=== PATIENT | male | born 2000 | race American Indian/Alaskan Native ===

== ENCOUNTER 2020-08-05 22:18 | Emergency (ER) | payer BC ==
[2020-08-05 23:20] VITALS: BP 115/75
[2020-08-06] MEDS ORDERED: ACETAMINOPHEN 500 MG TAB PO ONE (00:33)
[2020-08-06] MEDS ORDERED: IBUPROFEN 600 MG TAB PO ONE (00:33)
--- NOTE | 2020-08-06 01:03 | XRay Report ---
Right long finger-3 views INDICATION: Right middle finger pain, laceration. COMPARISON: None. IMPRESSION: No acute osseous abnormality. Superficial laceration over the dorsal aspect of the base of the middle phalanx with no radiopaque foreign body or significant subcutaneous gas. Normal align ment. No significant DJD. Signer Name: Syed Rodríguez MD Signed: 08/06/2020 12:58 AM Workstation Name: [id number]
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
== END 2020-08-06 01:55 | disposition home or self-care (01) ==
LOC: ED 22:18
DX: S61.212A Laceration without foreign body of right middle finger without damage to nail, initial encounter (principal); Z79.1 Long term (current) use of non-steroidal anti-inflammatories (NSAID); Z79.899 Other long term (current) drug therapy; Y04.2XXA Assault by strike against or bumped into by another person, initial encounter; Y93.89 Activity, other specified; Y92.89 Other specified places as the place of occurrence of the external cause; Y99.8 Other external cause status